=== PATIENT | male | born 1990 | race Caucasian/White ===

== ENCOUNTER 2020-06-20 13:04 | Outpatient (REF) | payer MEDICAID, SELFPAY | END 2020-06-20 13:05 | disposition home or self-care (01) | LOC: HO.LAB 13:04 | PROVIDERS: PCP Registered Nurse; Visit Provider Internal Medicine | DX: Z20.822 Contact with and (suspected) exposure to COVID-19 (principal) | CPT/HCPCS: 36415; C9803; U0003; U0005 ==

== ENCOUNTER 2020-07-01 11:41 | Outpatient (REF) | payer MEDICAID, SELFPAY | END 2020-07-01 11:42 | disposition home or self-care (01) | LOC: HO.LAB 11:41 | PROVIDERS: Visit Provider Internal Medicine | DX: Z20.822 Contact with and (suspected) exposure to COVID-19 (principal) | CPT/HCPCS: 36415; C9803; U0003; U0005 ==

== ENCOUNTER → 2020-09-17 20:27 | Outpatient (REF) | payer MEDICAID, SELFPAY | LOC: HO.SL 20:27 | PROVIDERS: PCP Registered Nurse; Visit Provider Internal Medicine Cardiovascular Disease | DX: G47.30 Sleep apnea, unspecified (principal) | CPT/HCPCS: 95810 ==

== ENCOUNTER 2021-04-29 11:33 | Outpatient (REF) | payer OTHER, SELFPAY ==
[2021-04-29 15:14] LABS: Appearance Urine CLOUDY; Color Urine YELLOW; Glucose Urine UA NEG (NEG); Leukocyte Esterase Urine NEG (NEG); Nitrite Urine NEG (NEG); Specific Gravity - Urine >= 1.030 (1.005-1.025); Urine Blood NEG (NEG); Urine Ketones NEG (NEG); Urine Protein NEG (NEG-TRACE)
[2021-04-30 03:13] LABS: CT PCR NOT DETECTED (Not Detect.); NG PCR NOT DETECTED (Not Detect.)
[2021-04-30 08:55] LABS: HBS Num1 128.33 mIU/mL (0-7.99); HBc Num1 0.12 S/CO (0.00-0.79); HBsAGNum1 0.26 S/CO (0.00-0.99); HIV AB/AG Nonreactive (Nonreactive); HIV Num 1 0.07 S/CO (0.00-0.99); Hepatitis B Core Antibody Nonreactive (Nonreactive); Hepatitis B Surface Antigen Negative (Negative); ~HepC Num1 0.11 S/CO (0.00-0.79); ~Hepatitis B Surface Antibody REACTIVE (Nonreactive); ~Hepatitis C Antibody Nonreactive (Nonreactive)
[2021-05-01 07:41] LABS: Hepatitis A Antibody IgM 0.17 Index (0-0.79); ~Hepatitis A Antibody IgM Nonreactive (Nonreactive)
== END 2021-04-29 11:34 | disposition home or self-care (01) ==
LOC: HO.WFDLDS 11:33
PROVIDERS: Visit Provider Hospitalist
DX: Z01.84 Encounter for antibody response examination (principal); Z20.2 Contact with and (suspected) exposure to infections with a predominantly sexual mode of transmission
CPT/HCPCS: 36415; 81003; 86704; 86706; 86709; 86803; 87340; 87389; 87491; 87591